=== PATIENT | female | born 1965 | race Hispanic/Latino ===

== ENCOUNTER → 2021-08-31 | Outpatient (CLI) | payer OTHER | END | disposition home or self-care (01) | LOC: RAH 12:24 | PROVIDERS: ATTEND Orthopaedic Surgery Sports Medicine | DX: M25.551 Pain in right hip (principal) | CPT/HCPCS: 78306; A9503 ==

== ENCOUNTER → 2021-12-05 | Outpatient (CLI) | payer OTHER | END | disposition home or self-care (01) | LOC: RAH 08:40 | PROVIDERS: ATTEND Orthopaedic Surgery Sports Medicine | DX: M47.817 Spondylosis without myelopathy or radiculopathy, lumbosacral region (principal); M54.50 Low back pain, unspecified; M48.07 Spinal stenosis, lumbosacral region | CPT/HCPCS: 72148 ==

== ENCOUNTER → 2022-02-10 | Outpatient (CLI) | payer OTHER | END | disposition home or self-care (01) | LOC: RAH 13:59 | PROVIDERS: ATTEND Internal Medicine | DX: E04.2 Nontoxic multinodular goiter (principal) | CPT/HCPCS: 76536 ==

== ENCOUNTER → 2022-04-03 | Outpatient (CLI) | payer OTHER ==
[~2022-04-03] MED LIST: LIDOCAINE HCL 1% 20 ML VIAL ONE
[2022-04-03 08:14] LABS: INR 0.95 (0.85-1.15); PROTHROMBIN TIME 10.4 SEC (9.6-11.6)
[2022-04-03 08:16] LABS: PARTIAL THROMBOPLASTIN TIME 34.2 SEC (26.3-35.5)
== END | disposition home or self-care (01) ==
LOC: RAH 07:28
PROVIDERS: ATTEND Internal Medicine
DX: E04.1 Nontoxic single thyroid nodule (principal); Z79.01 Long term (current) use of anticoagulants
CPT/HCPCS: 10005; 36415; 76942; 85610; 85730

== ENCOUNTER → 2023-06-25 | Outpatient (CLI) | payer OTHER | END | disposition home or self-care (01) | LOC: RAH 10:00 | PROVIDERS: ATTEND Internal Medicine Cardiovascular Disease | DX: Z13.6 Encounter for screening for cardiovascular disorders (principal) | CPT/HCPCS: 75571 ==